=== PATIENT | male | born 1945 | race Two or more races ===

== ENCOUNTER 2023-09-06 07:09 | Outpatient (CLI) | payer OTHER ==
[~2023-09-06 07:09] MED LIST: CLARINEX2.5 MG/TAB; FLONASE16 GM; HYZAAR 100-251 UDTAB
== END 2023-09-06 07:10 | disposition home or self-care (01) ==
LOC: NUCLEAR 07:09
DX: I20.9 Angina pectoris, unspecified (principal)
CPT/HCPCS: 78452; 93017; A9500

== ENCOUNTER 2024-01-31 07:11 | Day surgery (SDC) | payer OTHER ==
[~2024-01-31 07:11] MED LIST changes: +ADULT LOW DOSE81 M1; +AVAPRO75 MG; +CENTRUM; +GLUMETZA500 MG; +LIPITOR20 MG; +NORVASC5 MG; +OMEGA; +TAMS0.4C; +VIT C; +VIT E
[2024-01-31] MEDS ORDERED: CEFAZOLIN SODIUM 1,000 MG VIAL ONE (13:02)
[2024-01-31] MEDS ORDERED: LIDOCAINE HCL 1%/EPINEPHRINE 20ML VIAL IJ ONE ×2 (13:02→13:30)
[2024-01-31] MEDS ORDERED: BUPIVACAINE HCL/Mpf 0.5% 10ML VIAL ONE (13:02)
[2024-01-31] MEDS ORDERED: CEFAZOLIN SODIUM 1,000 MG VIAL IV ONE (13:30)
[2024-01-31] MEDS ORDERED: BUPIVACAINE HCL/PF 0.25% 30ML VIAL InF ONE (13:30)
[2024-01-31] MEDS ORDERED: TRAM1TAB98 PO (13:41)
== END 2024-01-31 15:30 | disposition home or self-care (01) ==
LOC: CIR.AMB 07:11
PROVIDERS: ATTEND Surgery
DX: T82.594A Other mechanical complication of infusion catheter, initial encounter (principal); C18.9 Malignant neoplasm of colon, unspecified; I10 Essential (primary) hypertension; E10.9 Type 1 diabetes mellitus without complications